=== PATIENT | male | born 1950 | race Caucasian/White ===

== ENCOUNTER 2017-10-18 16:53 | Inpatient (IN) | payer OTHER, MEDICAID ==
[2017-10-18] MEDS ORDERED: DEXTROSE 50% 25 GM / 50ML DISP.SYRIN. IV (18:00)
[2017-10-18] MEDS: IV DEXTROSE 5 %-0.45 % NACL 1,000 ML IV (18:29)
[2017-10-18 19:39] LABS: ADD MAN DIFF? NO
[2017-10-18 19:51] LABS: BASO % 0 % (0-3); EOS % 0 % (0-3); HEMATOCRIT 36.8 % (39.0-53.0); HEMOGLOBIN 12.2 g/dL (13.0-17.5); LYMPH # 1.7 x10^3/uL (1.0-4.8); LYMPH % 19 % (24-48); MEAN CORPUSCULAR HEMOGLOBIN 34 pg (25-35); MEAN CORPUSCULAR HGB CONC 33 g/dL (31-37); MEAN CORPUSCULAR VOLUME 101 fL (79-100); MONO # 0.5 x10^3/uL (0.0-1.1); MONO % 6 % (0-9); NEUT # 6.7 x10^3uL (1.8-7.7); NEUT % 74 % (31-73); PLATELET COUNT 177 x10^3/uL (140-400); RED BLOOD COUNT 3.63 x10^6/uL (4.30-5.70); RED CELL DISTRIBUTION WIDTH 14.3 % (11.5-14.5)
[2017-10-18 20:00] LABS: INR 1.1 (0.8-1.1); PROTHROMBIN TIME PATIENT 13.7 SEC (11.7-14.0)
[2017-10-18 20:02] LABS: ALBUMIN 3.5 g/dL (3.4-5.0); ALBUMIN/GLOBULIN RATIO 0.9 (1.0-1.7); ALK PHOS 62 U/L (46-116); ALT (SGPT) 32 U/L (16-63); ANION GAP 12 (6-14); AST (SGOT) 38 U/L (15-37); BLOOD UREA NITROGEN 56 mg/dL (8-26); BUN/CREATININE RATIO 27 (6-20); CALCIUM 9.2 mg/dL (8.5-10.1); CARBON DIOXIDE 25 mmol/L (21-32); CHLORIDE 96 mmol/L (98-107); CHOLESTEROL 95 mg/dL (0-200); CREATININE 2.1 mg/dL (0.7-1.3); GFR 31.5; GLUCOSE 66 mg/dL (70-99); HDLC 46 mg/dL (40-60); LDLC 29 mg/dL (0-100); MAGNESIUM 1.6 mg/dL (1.8-2.4); NON-HDL CHOLESTEROL 49 mg/dL (0-129); PHOSPHORUS 3.4 mg/dL (2.6-4.7); POTASSIUM 4.3 mmol/L (3.5-5.1); SODIUM 133 mmol/L (136-145); TOTAL BILIRUBIN 0.3 mg/dL (0.2-1.0); TOTAL PROTEIN 7.6 g/dL (6.4-8.2); TRIGLYCERIDES 100 mg/dL (0-150); VLDLC 20 mg/dL (0-40)
[2017-10-18 20:04] LABS: CHOLESTEROL/HDL RATIO 2.1
[2017-10-18 20:12] LABS: THYROID STIM HORMONE (TSH) 3.005 uIU/mL (0.358-3.74)
[2017-10-18] MEDS: DIVALPROEX DELAYED RELEASE 250 MG TABLET.DR. PO (20:31)
[2017-10-18] MEDS: SIMVASTATIN 40 MG TABLET. PO (20:31)
[2017-10-18] MEDS: ENOXAPARIN 40 MG/0.4 ML SYRINGE. SQ (20:32)
[2017-10-18 20:33] LABS: POC GLUCOSE 91 mg/dL (70-99)
[2017-10-19] MEDS: IV NORMAL SALINE 1000ML BAG 1,000 ML IV (04:49)
[2017-10-19 05:33] LABS: ADD MAN DIFF? NO
[2017-10-19] MEDS: IV DEXTROSE 5 %-0.45 % NACL 1,000 ML IV ×2 (05:57→15:41)
[2017-10-19 06:24] LABS: BASO % 1 % (0-3); EOS # 0.1 x10^3/uL (0.0-0.7); EOS % 1 % (0-3); HEMATOCRIT 30.3 % (39.0-53.0); HEMOGLOBIN 10.4 g/dL (13.0-17.5); LYMPH # 2.5 x10^3/uL (1.0-4.8); LYMPH % 35 % (24-48); MEAN CORPUSCULAR HEMOGLOBIN 34 pg (25-35); MEAN CORPUSCULAR HGB CONC 34 g/dL (31-37); MEAN CORPUSCULAR VOLUME 100 fL (79-100); MONO # 0.4 x10^3/uL (0.0-1.1); MONO % 6 % (0-9); NEUT % 56 % (31-73); PLATELET COUNT 141 x10^3/uL (140-400); RED BLOOD COUNT 3.04 x10^6/uL (4.30-5.70); RED CELL DISTRIBUTION WIDTH 14.1 % (11.5-14.5); WHITE BLOOD COUNT 7.2 x10^3/uL (4.0-11.0)
[2017-10-19 06:29] LABS: ANION GAP 12 (6-14); BLOOD UREA NITROGEN 50 mg/dL (8-26); CALCIUM 9.3 mg/dL (8.5-10.1); CARBON DIOXIDE 24 mmol/L (21-32); CHLORIDE 98 mmol/L (98-107); CREATININE 1.9 mg/dL (0.7-1.3); GFR 35.3; GLUCOSE 82 mg/dL (70-99); POTASSIUM 4.2 mmol/L (3.5-5.1); SODIUM 134 mmol/L (136-145)
[2017-10-19] MEDS ORDERED: glyBURIDE 5 MG TABLET PO (07:30)
[2017-10-19] MEDS: INSULIN ASPART 300 UNITS/3 ML INSULN.PEN SQ ×3 (08:00→17:45)
[2017-10-19 08:07] LABS: POC GLUCOSE 143 mg/dL (70-99)
[2017-10-19] MEDS: LISINOPRIL 5 MG TABLET. PO ×2 (09:00→09:31)
[2017-10-19] MEDS: DIVALPROEX DELAYED RELEASE 250 MG TABLET.DR. PO (09:29)
[2017-10-19] MEDS: PANTOPRAZOLE 40 MG TABLET.DR. PO (09:32)
[2017-10-19] MEDS: ASPIRIN ENTERIC COATED 81 MG TABLET.DR. PO (09:33)
[2017-10-19 09:43] LABS: BILIRUBIN,URINE NEGATIVE (NEG); CLARITY,URINE CLEAR; COLOR,URINE YELLOW; GLUCOSE,URINE NEGATIVE (NEG); NITRITE,URINE NEGATIVE (NEG); PH,URINE 5.5; PROTEIN,URINE NEGATIVE (NEG-TRACE); UROBILINOGEN,URINE 0.2 mg/dL (0.2 mg/dL)
[2017-10-19 09:54] LABS: BACTERIA,URINE 0 /HPF (0-FEW); HYALINE CASTS, URINE MANY /HPF; RBC,URINE 0 /HPF (0-2); SQUAMOUS EPITHELIAL CELL,UR MANY /LPF; WBC,URINE 0 /HPF (0-4)
[2017-10-19] MEDS: DIVALPROEX EXTENDED RELEASE 500 MG TAB.ER.24H. PO ×2 (10:54→21:14)
[2017-10-19 11:58] LABS: POC GLUCOSE 199 mg/dL (70-99)
[2017-10-19] MEDS: ACETAMINOPHEN 500 MG TABLET PO (12:38)
[2017-10-19] MEDS: MAGNESIUM SULFATE 2GM 50 ML IV (15:40)
[2017-10-19 16:59] LABS: POC GLUCOSE 244 mg/dL (70-99)
[2017-10-19] MEDS: ENOXAPARIN 40 MG/0.4 ML SYRINGE. SQ (17:41)
[2017-10-19 20:10] LABS: HEMOGLOBIN A1C 5.4 % (4.8-5.6)
[2017-10-19] MEDS: LACTOBACILLUS RHAMNOSUS GG 1 CAPSULE. PO (21:13)
[2017-10-19] MEDS: SIMVASTATIN 40 MG TABLET. PO (21:13)
[2017-10-19 21:16] LABS: POC GLUCOSE 228 mg/dL (70-99)
[2017-10-20 05:02] LABS: ADD MAN DIFF? NO
[2017-10-20 05:33] LABS: BASO % 0 % (0-3); EOS # 0.1 x10^3/uL (0.0-0.7); EOS % 1 % (0-3); HEMATOCRIT 31.9 % (39.0-53.0); HEMOGLOBIN 10.8 g/dL (13.0-17.5); LYMPH # 2.5 x10^3/uL (1.0-4.8); LYMPH % 34 % (24-48); MEAN CORPUSCULAR HEMOGLOBIN 34 pg (25-35); MEAN CORPUSCULAR HGB CONC 34 g/dL (31-37); MEAN CORPUSCULAR VOLUME 100 fL (79-100); MONO # 0.5 x10^3/uL (0.0-1.1); MONO % 6 % (0-9); NEUT # 4.4 x10^3uL (1.8-7.7); NEUT % 58 % (31-73); PLATELET COUNT 141 x10^3/uL (140-400); RED BLOOD COUNT 3.18 x10^6/uL (4.30-5.70); RED CELL DISTRIBUTION WIDTH 13.9 % (11.5-14.5); WHITE BLOOD COUNT 7.5 x10^3/uL (4.0-11.0)
[2017-10-20 05:56] LABS: ANION GAP 13 (6-14); BLOOD UREA NITROGEN 40 mg/dL (8-26); CARBON DIOXIDE 21 mmol/L (21-32); CHLORIDE 96 mmol/L (98-107); CREATININE 1.6 mg/dL (0.7-1.3); GFR 43.1; GLUCOSE 191 mg/dL (70-99); MAGNESIUM 2.1 mg/dL (1.8-2.4); POTASSIUM 4.1 mmol/L (3.5-5.1)
[2017-10-20] MEDS: IV DEXTROSE 5 %-0.45 % NACL 1,000 ML IV ×2 (06:01→12:28)
[2017-10-20 06:05] LABS: SODIUM 130 mmol/L (136-145)
[2017-10-20] MEDS: LACTOBACILLUS RHAMNOSUS GG 1 CAPSULE. PO ×2 (07:56→20:58)
[2017-10-20] MEDS: ASPIRIN ENTERIC COATED 81 MG TABLET.DR. PO (07:56)
[2017-10-20] MEDS: LISINOPRIL 5 MG TABLET. PO (07:57)
[2017-10-20] MEDS: DIVALPROEX EXTENDED RELEASE 500 MG TAB.ER.24H. PO ×2 (07:58→21:02)
[2017-10-20] MEDS: INSULIN ASPART 300 UNITS/3 ML INSULN.PEN SQ ×3 (08:00→17:47)
[2017-10-20 08:02] LABS: POC GLUCOSE 190 mg/dL (70-99)
[2017-10-20] MEDS ORDERED: DIVALPROEX EXTENDED RELEASE 250 MG TAB.ER.24H. PO (09:00)
[2017-10-20] MEDS: DIVALPROEX EXTENDED RELEASE 250 MG TAB.ER.24H. PO (11:00)
[2017-10-20] MEDS: PANTOPRAZOLE 40 MG TABLET.DR. PO (11:01)
[2017-10-20 12:41] LABS: POC GLUCOSE 187 mg/dL (70-99)
[2017-10-20 17:14] LABS: POC GLUCOSE 214 mg/dL (70-99)
[2017-10-20] MEDS: ENOXAPARIN 40 MG/0.4 ML SYRINGE. SQ (17:42)
[2017-10-20] MEDS: POLYETHYLENE GLYCOL 3350 17 GM PACKET. PO (17:42)
[2017-10-20] MEDS: SIMVASTATIN 40 MG TABLET. PO (20:59)
[2017-10-20] MEDS: BISACODYL 10 MG SUPP.RECT. PR (21:02)
[2017-10-20 21:10] LABS: POC GLUCOSE 235 mg/dL (70-99)
[2017-10-21] MEDS: ACETAMINOPHEN 500 MG TABLET PO ×3 (02:56→20:53)
[2017-10-21 03:17] LABS: ANION GAP 11 (6-14); BLOOD UREA NITROGEN 35 mg/dL (8-26); CALCIUM 8.5 mg/dL (8.5-10.1); CARBON DIOXIDE 24 mmol/L (21-32); CHLORIDE 94 mmol/L (98-107); CREATININE 1.6 mg/dL (0.7-1.3); GFR 43.1; GLUCOSE 272 mg/dL (70-99); POTASSIUM 4.4 mmol/L (3.5-5.1); SODIUM 129 mmol/L (136-145)
[2017-10-21] MEDS: IV DEXTROSE 5 %-0.45 % NACL 1,000 ML IV (05:43)
[2017-10-21 07:29] LABS: POC GLUCOSE 263 mg/dL (70-99)
[2017-10-21] MEDS: PANTOPRAZOLE 40 MG TABLET.DR. PO (07:30)
[2017-10-21] MEDS: LISINOPRIL 5 MG TABLET. PO (08:46)
[2017-10-21] MEDS: ASPIRIN ENTERIC COATED 81 MG TABLET.DR. PO (08:46)
[2017-10-21] MEDS: LACTOBACILLUS RHAMNOSUS GG 1 CAPSULE. PO ×2 (08:46→20:52)
[2017-10-21] MEDS: INSULIN ASPART 300 UNITS/3 ML INSULN.PEN SQ ×3 (08:48→17:02)
[2017-10-21] MEDS ORDERED: CONTRAST GIVEN MC (09:15)
[2017-10-21] MEDS: IOHEXOL 240 MG/ML 50ML VIAL. PO (09:15)
[2017-10-21] MEDS: IV NORMAL SALINE 1000ML BAG 1,000 ML IV ×2 (11:11→23:07)
[2017-10-21] MEDS: DIVALPROEX EXTENDED RELEASE 250 MG TAB.ER.24H. PO (11:11)
[2017-10-21 11:22] LABS: POC GLUCOSE 234 mg/dL (70-99)
[2017-10-21] MEDS: POLYETHYLENE GLYCOL 3350 17 GM PACKET. PO (16:04)
[2017-10-21] MEDS: traMADol 50 MG TABLET PO ×2 (16:05→23:07)
[2017-10-21 16:39] LABS: POC GLUCOSE 228 mg/dL (70-99)
[2017-10-21] MEDS: ENOXAPARIN 40 MG/0.4 ML SYRINGE. SQ (16:59)
[2017-10-21] MEDS ORDERED: ONDANSETRON PF 4 MG/2 ML VIAL. (19:53)
[2017-10-21] MEDS: ONDANSETRON PF 4 MG/2 ML VIAL. IV (19:55)
[2017-10-21] MEDS: IV NORMAL SALINE 500ML BAG 500 ML IV (20:52)
[2017-10-21] MEDS: SIMVASTATIN 40 MG TABLET. PO (20:53)
[2017-10-21] MEDS: DIVALPROEX EXTENDED RELEASE 500 MG TAB.ER.24H. PO (20:53)
[2017-10-21 20:55] LABS: POC GLUCOSE 241 mg/dL (70-99)
[2017-10-21] MEDS: INSULIN DETEMIR 300 UNITS/3 ML INSULN.PEN. SQ (20:58)
[2017-10-22 04:52] LABS: ADD MAN DIFF? NO
[2017-10-22 05:01] LABS: BASO % 0 % (0-3); EOS % 0 % (0-3); HEMOGLOBIN 11.4 g/dL (13.0-17.5); LYMPH # 2.1 x10^3/uL (1.0-4.8); LYMPH % 15 % (24-48); MEAN CORPUSCULAR HEMOGLOBIN 34 pg (25-35); MEAN CORPUSCULAR HGB CONC 34 g/dL (31-37); MEAN CORPUSCULAR VOLUME 101 fL (79-100); MONO # 1.1 x10^3/uL (0.0-1.1); MONO % 8 % (0-9); NEUT # 10.4 x10^3uL (1.8-7.7); NEUT % 77 % (31-73); PLATELET COUNT 101 x10^3/uL (140-400); RED BLOOD COUNT 3.35 x10^6/uL (4.30-5.70); RED CELL DISTRIBUTION WIDTH 14.2 % (11.5-14.5); WHITE BLOOD COUNT 13.6 x10^3/uL (4.0-11.0)
[2017-10-22 05:09] LABS: ANION GAP 15 (6-14); BLOOD UREA NITROGEN 39 mg/dL (8-26); CALCIUM 8.4 mg/dL (8.5-10.1); CARBON DIOXIDE 17 mmol/L (21-32); CHLORIDE 95 mmol/L (98-107); GFR 33.3; GLUCOSE 177 mg/dL (70-99); POTASSIUM 5.4 mmol/L (3.5-5.1); SODIUM 127 mmol/L (136-145)
[2017-10-22] MEDS: PANTOPRAZOLE 40 MG TABLET.DR. PO (06:00)
[2017-10-22] MEDS: traMADol 50 MG TABLET PO (06:00)
[2017-10-22] MEDS: ONDANSETRON PF 4 MG/2 ML VIAL. IV ×2 (06:00→14:23)
[2017-10-22 06:46] LABS: % SAT IRON 18 % (15-34); IRON,SERUM 53 ug/dL (65-175)
[2017-10-22] MEDS: INSULIN ASPART 300 UNITS/3 ML INSULN.PEN SQ ×3 (08:00→17:00)
[2017-10-22 08:06] LABS: ACANTHOCYTES PRESENT; PLT ESTIMATE ADEQUATE (ADEQUATE); POIKILOCYTOSIS PRESENT
[2017-10-22 08:07] LABS: POC GLUCOSE 144 mg/dL (70-99)
[2017-10-22 08:20] LABS: FOLATE 23.96 ng/ml (3.2-20.0)
[2017-10-22 08:46] LABS: MAGNESIUM 2.2 mg/dL (1.8-2.4)
[2017-10-22 08:59] LABS: NT-PRO BNP > 35000 pg/mL (0-124)
[2017-10-22 09:00] LABS: VITAMIN-B12 > 2000 pg/mL (247-911)
[2017-10-22] MEDS: LISINOPRIL 5 MG TABLET. PO (09:00)
[2017-10-22] MEDS: DIVALPROEX EXTENDED RELEASE 250 MG TAB.ER.24H. PO (09:11)
[2017-10-22] MEDS: ASPIRIN ENTERIC COATED 81 MG TABLET.DR. PO (09:11)
[2017-10-22] MEDS: LACTOBACILLUS RHAMNOSUS GG 1 CAPSULE. PO ×2 (09:11→21:15)
[2017-10-22 11:55] LABS: INR 3.1 (0.8-1.1)
[2017-10-22 11:59] LABS: ANION GAP 15 (6-14); BLOOD UREA NITROGEN 41 mg/dL (8-26); CALCIUM 8.5 mg/dL (8.5-10.1); CARBON DIOXIDE 18 mmol/L (21-32); CHLORIDE 95 mmol/L (98-107); CREATININE 2.3 mg/dL (0.7-1.3); GFR 28.3; GLUCOSE 136 mg/dL (70-99); SODIUM 128 mmol/L (136-145)
[2017-10-22 12:01] LABS: POTASSIUM 5.4 mmol/L (3.5-5.1)
[2017-10-22 12:11] LABS: TROPONINI 0.112 ng/mL (0.000-0.055)
[2017-10-22] MEDS ORDERED: VANCOMYCIN 1 GM in IV DEXTROSE 5% 250 ML IV (12:15)
[2017-10-22 12:29] LABS: LACTIC ACID 7.2 mmol/L (0.4-2.0)
[2017-10-22 12:32] LABS: POC GLUCOSE 113 mg/dL (70-99)
[2017-10-22] MEDS ORDERED: VANCOMYCIN PER PHARMACY MC (12:45)
[2017-10-22] MEDS ORDERED: VANCOMYCIN 1.25 GM in IV 1/2 NORMAL SALINE 250 ML IV (13:00)
[2017-10-22] MEDS: SODIUM POLYSTYRENE SULFONATE 15 GM/60 ML ORAL.SUSP. PO (13:32)
[2017-10-22] MEDS: PIPERACILLIN/TAZOBACTAM 3.375 GM in IV NORMAL SALINE 50ML 50 ML IV (13:32)
[2017-10-22] MEDS: PHYTONADIONE 10 MG/ML AMPUL. SQ (13:32)
[2017-10-22] MEDS: SODIUM BICARBONATE VIAL 50 MEQ in IV 1/2 NORMAL SALINE 1,000 ML IV (13:32)
[2017-10-22 13:34] LABS: CKMB INDEX 1.3 % (0-4); CKMB MASS 2.2 ng/mL (0.0-3.6); CREATINE KINASE 174 U/L (39-308)
[2017-10-22 15:23] LABS: D-DIMER 11.53 ug/mlFEU (0.00-0.50)
[2017-10-22] MEDS: NOREPINEPHRIN PREMIX 250 ML IV ×2 (15:37→22:21)
[2017-10-22] MEDS: IV NORMAL SALINE 1000ML BAG 1,000 ML IV (16:40)
[2017-10-22 17:28] LABS: LACTIC ACID 7.7 mmol/L (0.4-2.0)
[2017-10-22] MEDS: PIPERACILLIN/TAZOBACTAM 2.25 GM in IV NORMAL SALINE 50ML 50 ML IV ×2 (17:48→23:45)
[2017-10-22 18:00] LABS: POC GLUCOSE 122 mg/dL (70-99)
[2017-10-22] MEDS: ENOXAPARIN 40 MG/0.4 ML SYRINGE. SQ (18:00)
[2017-10-22 18:21] LABS: INR 4.2 (0.8-1.1); PROTHROMBIN TIME PATIENT 38.1 SEC (11.7-14.0)
[2017-10-22] MEDS: VANCOMYCIN 1 GM in IV 1/2 NORMAL SALINE 250 ML IV (19:29)
[2017-10-22 21:10] LABS: C DIFF BY PCR Negative (Negative)
[2017-10-22] MEDS: DIVALPROEX EXTENDED RELEASE 500 MG TAB.ER.24H. PO (21:15)
[2017-10-22] MEDS: SIMVASTATIN 40 MG TABLET. PO (21:15)
[2017-10-22] MEDS: INSULIN DETEMIR 300 UNITS/3 ML INSULN.PEN. SQ (21:16)
[2017-10-22 21:25] LABS: POC GLUCOSE 97 mg/dL (70-99)
[2017-10-22 22:21] LABS: INFLUENZA A PATIENT NEGATIVE (NEGATIVE); INFLUENZA B PATIENT NEGATIVE (NEGATIVE); OBC FLU VALID
[2017-10-23 00:58] LABS: TROPONINI 1.396 ng/mL (0.000-0.055)
[2017-10-23 01:48] LABS: LACTIC ACID 16.6 mmol/L (0.4-2.0)
[2017-10-23] MEDS: ONDANSETRON PF 4 MG/2 ML VIAL. IV (02:08)
[2017-10-23] MEDS: LIDO:MAALOX:DONNATAL 1:1:1 15 ML SINGLE DOSE SWSW (02:36)
[2017-10-23] MEDS: SODIUM BICARBONATE VIAL 50 MEQ in IV 1/2 NORMAL SALINE 1,000 ML IV (03:51)
[2017-10-23] MEDS: NOREPINEPHRIN PREMIX 250 ML IV ×2 (03:57→09:00)
[2017-10-23] MEDS: IV NORMAL SALINE 500ML BAG 500 ML IV (04:48)
[2017-10-23] MEDS: PIPERACILLIN/TAZOBACTAM 2.25 GM in IV NORMAL SALINE 50ML 50 ML IV (05:32)
[2017-10-23] MEDS: PANTOPRAZOLE 40 MG TABLET.DR. PO (07:30)
[2017-10-23 07:46] LABS: BASO % 0 % (0-3); EOS % 0 % (0-3); HEMATOCRIT 40.5 % (39.0-53.0); HEMOGLOBIN 11.8 g/dL (13.0-17.5); LYMPH # 0.5 x10^3/uL (1.0-4.8); LYMPH % 3 % (24-48); MEAN CORPUSCULAR HEMOGLOBIN 34 pg (25-35); MEAN CORPUSCULAR HGB CONC 29 g/dL (31-37); MEAN CORPUSCULAR VOLUME 115 fL (79-100); MONO # 0.7 x10^3/uL (0.0-1.1); MONO % 5 % (0-9); NEUT # 14.1 x10^3uL (1.8-7.7); NEUT % 92 % (31-73); PLATELET COUNT 27 x10^3/uL (140-400); RED BLOOD COUNT 3.53 x10^6/uL (4.30-5.70); RED CELL DISTRIBUTION WIDTH 15.9 % (11.5-14.5); WHITE BLOOD COUNT 15.3 x10^3/uL (4.0-11.0)
[2017-10-23 07:58] LABS: PROTHROMBIN TIME PATIENT 51.3 SEC (11.7-14.0)
[2017-10-23 07:59] LABS: ANION GAP 27 (6-14); BLOOD UREA NITROGEN 49 mg/dL (8-26); CHLORIDE 94 mmol/L (98-107); CREATININE 3.3 mg/dL (0.7-1.3); GFR 18.7; GLUCOSE 122 mg/dL (70-99); POTASSIUM 5.5 mmol/L (3.5-5.1); SODIUM 128 mmol/L (136-145)
[2017-10-23] MEDS: INSULIN ASPART 300 UNITS/3 ML INSULN.PEN SQ (08:00)
[2017-10-23 08:03] LABS: ADD MAN DIFF? YES
[2017-10-23 08:04] LABS: INR 6.2 (0.8-1.1)
[2017-10-23 08:13] LABS: BASE EXCESS ABG -28 mmol/L (-3-3); HCO3 ABG 3 mmol/L (21-28); PO2 ABG 106 mmHg (65-108); SAT O2 ABG 94 % (92-99)
[2017-10-23 08:18] LABS: FIO2 ABG 21; PCO2 ABG < 15 mmHg (35-46); PH ABG 6.94 (7.35-7.45)
[2017-10-23 08:20] LABS: ALBUMIN 2.9 g/dL (3.4-5.0); ALK PHOS 100 U/L (46-116); TOTAL BILIRUBIN 1.6 mg/dL (0.2-1.0); TOTAL PROTEIN 6.3 g/dL (6.4-8.2)
[2017-10-23 08:30] LABS: PARTIAL THROMBOPLASTIN TIME 54 SEC (24-38)
[2017-10-23 08:31] LABS: PROTHROMBIN TIME PATIENT 52.1 SEC (11.7-14.0)
[2017-10-23] MEDS ORDERED: SODIUM BICARB ADULT 8.4% 50 MEQ/50 ML DISP.SYRIN. ×3 (08:31→12:00)
[2017-10-23 08:44] LABS: CARBON DIOXIDE 7 mmol/L (21-32)
[2017-10-23 08:45] LABS: LACTIC ACID 18.1 mmol/L (0.4-2.0)
[2017-10-23] MEDS: EPINEPHrine VIAL 8 MG in IV NORMAL SALINE 250ML 250 ML IV (08:45)
[2017-10-23 08:48] LABS: D-DIMER 18.04 ug/mlFEU (0.00-0.50)
[2017-10-23 08:49] LABS: FIBRINOGEN < 100 mg/dL (200-440)
[2017-10-23 08:50] LABS: INR 6.3 (0.8-1.1)
[2017-10-23] MEDS: SUCCINYLCHOLINE 200 MG/10 ML VIAL. IV (09:00)
[2017-10-23] MEDS: PHENYLEPHRINE INJ 80 MG in IV NORMAL SALINE 250ML 250 ML IV ×2 (09:00→14:21)
[2017-10-23] MEDS: DIVALPROEX EXTENDED RELEASE 250 MG TAB.ER.24H. PO (09:00)
[2017-10-23] MEDS: SODIUM BICARB ADULT 8.4% 50 MEQ/50 ML DISP.SYRIN. IV ×2 (09:00→11:00)
[2017-10-23] MEDS: VASOPRESSIN 40 UNIT in IV DEXTROSE 5% 100 ML IV (09:00)
[2017-10-23] MEDS: LACTOBACILLUS RHAMNOSUS GG 1 CAPSULE. PO (09:00)
[2017-10-23 09:08] LABS: BASE EXCESS ABG -24 mmol/L (-3-3); HCO3 ABG 7 mmol/L (21-28); PCO2 ABG 31 mmHg (35-46); PO2 ABG 202 mmHg (65-108); SAT O2 ABG 98 % (92-99)
[2017-10-23 09:13] LABS: PH ABG 6.95 (7.35-7.45)
[2017-10-23] MEDS: SODIUM BICARBONATE VIAL 150 MEQ in IV 1/2 NORMAL SALINE 1,000 ML IV (09:15)
[2017-10-23 09:23] LABS: ALT (SGPT) 3881 U/L (16-63); AST (SGOT) 8720 U/L (15-37)
[2017-10-23 09:32] LABS: PLATELET COUNT 27 x10^3/uL (140-400)
[2017-10-23] MEDS: MICAFUNGIN 100 MG in IV DEXTROSE 5% 100 ML IV (11:19)
[2017-10-23] MEDS: MIDAZOLAM HCL/PF 5 MG/5 ML VIAL. IV (11:19)
[2017-10-23 11:51] LABS: % EOS 1 % (0-5); % LYMPHS 2 % (24-48); % MONOS 6 % (0-10); % SEGS 91 % (35-66); PLT ESTIMATE DECREASED (ADEQUATE)
[2017-10-23 11:52] LABS: BURR CELLS MOD
[2017-10-23] MEDS ORDERED: EPINEPHrine SYRINGE 1 MG/10 ML SYRINGE (12:00)
[2017-10-23] MEDS: NOREPINEPHRINE VIAL 16 MG in IV NORMAL SALINE 250ML 250 ML IV (12:43)
[2017-10-23] MEDS: MIDAZOLAM 100MG/100ML PREMIX 100 ML IV (13:24)
[2017-10-23] MEDS ORDERED: MORPHINE SULFATE 2 MG/ML DISP.SYRIN. IV (15:15)
[2017-10-23] MEDS: MORPHINE SULFATE/PF 30 ML IV (16:04)
[2017-10-23 22:14] LABS: MRSA BY PCR Negative (Negative)
[2017-10-24] MEDS ORDERED: PANTOPRAZOLE IV PUSH 40 MG VIAL. IVP (07:30)
== END 2017-10-23 16:22 | disposition expired | DRG 871 ==
LOC: 4 NORTH 16:53 → 1 WEST ICU 10-22 11:37
PROC: 5A1935Z Respiratory Ventilation, Less than 24 Consecutive Hours (ICD-10-PCS; principal; 2017-10-18)
PROC: 0BH17EZ Insertion of Endotracheal Airway into Trachea, Via Natural or Artificial Opening (ICD-10-PCS; 2017-10-18)
DX: A41.9 Sepsis, unspecified organism (principal); N17.0 Acute kidney failure with tubular necrosis; D65 Disseminated intravascular coagulation [defibrination syndrome]; E43 Unspecified severe protein-calorie malnutrition; J96.00 Acute respiratory failure, unspecified whether with hypoxia or hypercapnia; K72.00 Acute and subacute hepatic failure without coma; R57.0 Cardiogenic shock; E86.0 Dehydration; I50.43 Acute on chronic combined systolic (congestive) and diastolic (congestive) heart failure; I42.9 Cardiomyopathy, unspecified; I13.0 Hypertensive heart and chronic kidney disease with heart failure and stage 1 through stage 4 chronic kidney disease, or unspecified chronic kidney disease; N17.9 Acute kidney failure, unspecified; E87.1 Hypo-osmolality and hyponatremia; E11.22 Type 2 diabetes mellitus with diabetic chronic kidney disease; K52.9 Noninfective gastroenteritis and colitis, unspecified; D53.9 Nutritional anemia, unspecified; Z68.31 Body mass index [BMI] 31.0-31.9, adult; E78.5 Hyperlipidemia, unspecified; E87.5 Hyperkalemia; F31.9 Bipolar disorder, unspecified; K21.0 Gastro-esophageal reflux disease with esophagitis; N18.9 Chronic kidney disease, unspecified; Z66 Do not resuscitate; Z79.4 Long term (current) use of insulin; Z83.3 Family history of diabetes mellitus; Z90.49 Acquired absence of other specified parts of digestive tract; Z98.49 Cataract extraction status, unspecified eye; Z87.891 Personal history of nicotine dependence; K59.00 Constipation, unspecified
CPT/HCPCS: 36415; 36600; 71045; 74176; 80048; 80053; 80061; 80076; 81001; 82553; 82607; 82746; 82805; 82962; 83036; 83540; 83550; 83605; 83735; 83880; 84100; 84132; 84443; 84484; 85007; 85025; 85049; 85379; 85384; 85610; 85730; 87040; 87045; 87324; 87641; 87804; 87804-59; 93005; 93306; 93970; 94002; J0171; J0330; J0878; J1265; J1650; J1815; J2248; J2250; J2270; J2405; J2543; J3370; J3430; J3490; J7030; J7040; J7050; J7060; Q9966